=== PATIENT | female | born 1935 | race Asian ===

== ENCOUNTER 2017-06-22 20:17 | Outpatient (CLI) | payer OTHER ==
[2017-06-22] MEDS ORDERED: NEXIUM40 MG PO (20:46)
[2017-06-22] MEDS ORDERED: BYSTOLIC10 MG PO (20:46)
[2017-06-22] MEDS ORDERED: DONE5TAB PO (20:46)
[2017-06-22] MEDS ORDERED: BUSP5TAB2 PO (20:47)
[2017-06-22] MEDS ORDERED: LIPITOR40 MG PO (20:47)
[2017-06-22] MEDS ORDERED: LEVO0.0218 PO (20:47)
[2017-06-22] MEDS ORDERED: OMEPRAZOLE20 M1 OR (20:47)
[2017-06-22] MEDS ORDERED: AMLO2.5T PO (20:47)
[2017-06-22] MEDS ORDERED: ASPI325T40 PO (20:48)
== END 2017-06-22 20:25 | disposition short-term general hospital (02) ==
LOC: AMB 20:17
DX: R11.2 Nausea with vomiting, unspecified (principal); R47.81 Slurred speech
CPT/HCPCS: A0425; A0427

== ENCOUNTER 2017-06-22 20:38 | Emergency (ER) | payer OTHER ==
[~2017-06-22] VITALS: Ht 144.8 cm; Wt 74.8 kg
[2017-06-22] MEDS ORDERED: BYSTOLIC10 MG PO (20:46)
[2017-06-22] MEDS ORDERED: DONE5TAB PO (20:46)
[2017-06-22] MEDS ORDERED: NEXIUM40 MG PO (20:46)
[2017-06-22] MEDS ORDERED: LEVO0.0218 PO (20:47)
[2017-06-22] MEDS ORDERED: LIPITOR40 MG PO (20:47)
[2017-06-22] MEDS ORDERED: AMLO2.5T PO (20:47)
[2017-06-22] MEDS ORDERED: BUSP5TAB2 PO (20:47)
[2017-06-22] MEDS ORDERED: OMEPRAZOLE20 M1 OR (20:47)
[2017-06-22] MEDS ORDERED: ASPI325T40 PO (20:48)
[2017-06-22 21:12] LABS: PLATELET COUNT 280 K/uL (152-353)
[2017-06-22 21:13] LABS: POTASSIUM 2.6 mmol/L (3.6-5.2)
[2017-06-23 01:10] VITALS: BP 125/55; TEMP 98.6
== END 2017-06-23 01:15 | disposition home or self-care (01) ==
LOC: ED 20:38
PROVIDERS: Specialist
DX: K27.9 Peptic ulcer, site unspecified, unspecified as acute or chronic, without hemorrhage or perforation (principal); T78.1XXA Other adverse food reactions, not elsewhere classified, initial encounter; R11.2 Nausea with vomiting, unspecified
CPT/HCPCS: 36415; 80053; 82150; 83605; 83690; 83735; 84100; 85027; 96374; 96375; 99284; J1170; J2405; J3490; Q9963

== ENCOUNTER 2018-02-22 18:39 | Outpatient (CLI) | payer OTHER ==
[~2018-02-22 18:39] MED LIST: AMLO2.5T PO; ASPI325T40 PO; BUSP5TAB2 PO; BYSTOLIC10 MG PO; DONE5TAB PO; LEVO0.0218 PO; LIPITOR40 MG PO; NEXIUM40 MG PO; OMEPRAZOLE20 M1 OR
== END 2018-02-22 18:42 | disposition short-term general hospital (02) ==
LOC: AMB 18:39
DX: R10.9 Unspecified abdominal pain (principal); R11.2 Nausea with vomiting, unspecified; R42 Dizziness and giddiness; Z91.81 History of falling
CPT/HCPCS: A0425; A0427